=== PATIENT | male | born 1950 | race Caucasian/White ===

== ENCOUNTER → 2016-06-09 | Outpatient (CLI) | payer BC ==
[~2016-06-09] MED LIST: ALBU8CC IH; ASPI325T4 PO; ATN25T PO; ATOR10TA PO; CALC500T55 PO; GBPN300C PO; HCT25T PO; IBP800T PO; MOME13HF2 IH; NFLOSA25TA PO; NIAC500T24 PO; methylPREDNISolone 80 MG/ML (DEPO MEDROL) VIAL IM ONE
--- NOTE | 2016-06-09 14:08 | PAIN MANAGEMENT ---
Date of note: 06/09/2016 PROCEDURE: Epidural steroid injection L5-S1. This is a 66-year-old patient of Dr. Ricco Knapp. Parveen present with lumbar radicular symptoms in L5-S1 with L5 being the primary. Informed consent was achieved for an epidural steroid injection of L5-S1. Orders for procedure verified. Patient denies any bleeding tendencies. After informed consent obtained, the patient was positioned for the lumbar epidural steroid injection. The area was prepped and draped using aseptic technique. The skin and overlying tissues were localized using 3 mL of 1% Preservative-Free lidocaine using a 25-gauge 1.5-inch needle. A 20-gauge Tuohy needle was advanced, using "loss of resistance" technique, to the epidural space. No blood, cerebral spinal fluid, pain, or paresthesia noted on entry of the epidural space. A 1 mL solution of Depo-Medrol 80 mg was injected slowly without mass volume effect. The patient was placed in supine position 15 minutes prior to being released with proper leg strength and vitals. Pre- and post procedure vital signs stable with no sensory or motor deficit noted. Instruction on followup contact and care provided to the patient.
== END ==
LOC: PMC 12:02
PROVIDERS: ATTEND Neurological Surgery
DX: M54.16 Radiculopathy, lumbar region (principal)

== ENCOUNTER → 2016-07-14 | Outpatient (CLI) | payer BC ==
--- NOTE | 2016-07-17 07:53 | PAIN MANAGEMENT ---
Date of note: 07/14/2016 Procedure: Lumbar epidural steroid injection at L5-S1 This is a 66-year-old patient of Dr. Ricco Knapp. The patient presents with a history of spinal stenosis and bilateral radicular symptoms, primarily in the dermatome level of L5-S1. Informed consent was achieved for an epidural steroid injection at L5-S1. He has had a previous back surgery. The patient was placed in the left lateral decubitus. Orders for procedure verified. Patient denies any bleeding tendencies. After informed consent obtained, the patient was positioned for the lumbar epidural steroid injection. The area was prepped and draped using aseptic technique. The skin and overlying tissues were localized using 3 mL of 1% Preservative-Free lidocaine using a 25-gauge 1.5-inch needle. A 20-gauge Tuohy needle was advanced, using "loss of resistance" technique, to the epidural space. No blood, cerebral spinal fluid, pain, or paresthesia noted on entry of the epidural space. A 2 mL solution of Depo-Medrol 160 mg was injected slowly without mass volume effect. The patient was placed in supine position 15 minutes prior to being released with proper leg strength and vitals. Pre- and post procedure vital signs stable with no sensory or motor deficit noted. Instruction on followup contact and care provided to the patient.
== END ==
LOC: PMC 13:18
PROVIDERS: ATTEND Neurological Surgery
DX: M48.06 Spinal stenosis, lumbar region (principal); I10 Essential (primary) hypertension
CPT/HCPCS: 62322; J1040